=== PATIENT | female | born 1980 | race African-American/Black ===

== ENCOUNTER 2021-03-19 11:33 | Outpatient (REF) | payer OTHER, SELFPAY ==
[2021-03-19 13:34] LABS: Appearance Urine HAZY; Color Urine YELLOW; Glucose Urine UA NEG (NEG); Leukocyte Esterase Urine NEG (NEG); Nitrite Urine NEG (NEG); Urine Blood 1+ (NEG); Urine Ketones NEG (NEG); Urine Protein NEG (NEG-TRACE)
[2021-03-19 13:47] LABS: Mucus Urine 1+ /LPF; Squamous Epithelial Cell Urine 1+ /LPF; WBC Urine 0 /HPF (0-4)
== END 2021-03-19 11:34 | disposition home or self-care (01) ==
LOC: HO.LAB 11:33
PROVIDERS: PCP Internal Medicine; Visit Provider Internal Medicine
DX: F41.9 Anxiety disorder, unspecified (principal); E78.00 Pure hypercholesterolemia, unspecified
CPT/HCPCS: 36415; 80048; 80061; 80076; 81001; 81003; 84443; 85027

== ENCOUNTER 2021-04-01 09:41 | Outpatient (REF) | payer OTHER, SELFPAY ==
[2021-04-01 11:40] LABS: Appearance Urine CLEAR; Color Urine YELLOW; Glucose Urine UA NEG (NEG); Leukocyte Esterase Urine NEG (NEG); Nitrite Urine NEG (NEG); Urine Blood TRACE (NEG); Urine Ketones NEG (NEG); Urine Protein NEG (NEG-TRACE)
[2021-04-01 11:41] LABS: Hematocrit 38.2 % (37.0-47.0); Mean Corpuscular HGB Conc 31.4 g/dl (31.0-35.0); Mean Corpuscular Hemoglobin 30.6 pg (27.0-33.0); Mean Corpuscular Volume 97.4 fL (80.0-98.0); Mean Platelet Volume 12.4 fL (9.4-12.3); Platelet Count 198 X10*3/uL (160-400); Red Blood Count 3.92 X10*6/uL (4.20-5.50); Red Cell Distribution Width 13.1 % (11.0-16.0); White Blood Count 5.5 X10*3/uL (4.8-10.8)
[2021-04-01 11:50] LABS: Alanine Aminotransferase 23 U/L (0-31); Albumin Level 4.2 g/dL (3.5-5.0); Alkaline Phosphatase 47 U/L (39-117); Anion Gap 10 (12-20); Aspartate Amino Transferase 18 U/L (5-31); Bilirubin Direct 0.2 mg/dL (0.0-0.5); Bilirubin Total 0.6 mg/dL (0.0-1.0); Blood Urea Nitrogen 12 mg/dL (9-16); Calcium 9.8 mg/dL (8.4-10.2); Carbon Dioxide 26 mmol/L (22-29); Chloride 109 mmol/L (96-108); Cholesterol 173 mg/dL; Estimated Glomerular Filt Rate > 60; Glucose Random 94 mg/dL (60-115); HDL Cholesterol 40 mg/dL; LDL Cholesterol Calculated 118 mg/dl; Potassium 4.5 mmol/L (3.3-5.1); Sodium 140 mmol/L (135-145); Total Protein 6.8 g/dL (6.5-8.0); Triglycerides 75 mg/dL
[2021-04-01 12:00] LABS: Squamous Epithelial Cell Urine 1+ /LPF
[2021-04-01 12:01] LABS: WBC Urine 0-2 /HPF (0-4)
[2021-04-01 12:02] LABS: Mucus Urine TRACE /LPF
== END 2021-04-01 09:42 | disposition home or self-care (01) ==
LOC: HO.HMGCLDS 09:41
PROVIDERS: PCP Internal Medicine; Visit Provider Internal Medicine
DX: E78.00 Pure hypercholesterolemia, unspecified (principal); F41.9 Anxiety disorder, unspecified
CPT/HCPCS: 36415; 80048; 80061; 80076; 81001; 84443; 85027

== ENCOUNTER 2021-07-25 16:00 | Outpatient (RCR) | payer OTHER, SELFPAY ==
--- NOTE | 2021-04-29 17:57 | MHC.PT.EP ---
[facility] [place] Office [place] Office [place] Office [address] Bonny Quiñonez [address] [phone] F: [phone] F: [phone] F: [phone] F: [phone] Physical Therapy Plan of Care Date of Evaluation: Date of Surgery: Diagnosis: This is 40 yo female presenting to skilled PT with a script for LBP. Assessment: This is 40 yo female presenting to skilled PT with a script for LBP. Patient reporting R hip pain that has been ongoing for about 2 years after a slip (did not fall). Her pain has gotten worse since. She reports that the R hip went into the trendelberg. She feels like she has lost ROM and strength. Pain increases with laying on the R hip, sitting, turning to the L, ascending and descending stairs. Pain is located at the R lateral hip, can wrap into the lateral aspect of the glut and ITB. Pain is described as sharp but is constant and dull with a lot of movement. Assessment reveals pain that ranges up to an 8/10. She demos decreased hip and lumbar ROM, decreased hip strength, impaired gait pattern as described above, impaired joint mobility throughout lumbar and hip joint, S/S consistent with SIJ involvement with sacral and ilium rotation as well as gross functional decline with standing, sitting, walking and ADLs. She is a good candidate for skilled PT 2x/wk for 5wks. Frequency and Duration: The patient will be seen 2x/wk for 5wks Short Term Goals: Demo proper squat and hip hinge technique Demo good pelvic symmetry Demo proper core stab in all planes Residential Goals: Tolerate sleeping on the R side without pain, sleep through the nice Tolerate dancing without pain during or pain following the day after Tolerate walking on treadmill at 3.0-3.5 mph for 15 mins without pain I in HEP and understand how to progress. Treatment Plan: Modalities to reduce pain, spasms and effusion. Manual therapy to restore motion and function. Therapeutic exercise to improve strength and flexibility. Neuromuscular re-education for posture and balance. Therapeutic activities to return to functional activities of daily living. Electronically signed by: Daisy Dubuc, PT Please sign and return to therapist. Thank you for your referral.
--- NOTE | 2021-07-26 07:46 | MHC.PT.DC ---
[facility] [place] Office [place] Office [place] Office [address] Bonny Quiñonez [address] [phone] F: [phone] F: [phone] F: [phone] F: [phone] Physical Therapy Discharge Report Diagnosis: This is 40 yo female presenting to skilled PT with a script for LBP. Date of Surgery: Date of Evaluation: 04/29/21 Date of Discharge: 07/25/21 Treatments to Date: 15 Cancellations to Date: 1 No Shows to Date: 1 Discharge Status: Achieved Goals Improved Function Independent with HEP Discharge Summary: Patient ad 15 visits with PT and was pain free on her last few appointments. Pt I with her HEP and tolerates full ther-ex program without manual intervention. Pt has improved function, balance, reduced pain and increased flexibility. DC to HEP at this time. Electronically signed by: Daisy Suresh PT Please sign and return to therapist. Thank you for your referral.
== END 2021-07-26 07:46 | disposition home or self-care (01) ==
LOC: HO.PTCHIC 16:00
PROVIDERS: PCP Internal Medicine; Visit Provider Internal Medicine
DX: S76.011D Strain of muscle, fascia and tendon of right hip, subsequent encounter (principal)
CPT/HCPCS: 97014; 97110; 97112; 97140; 97162; 97530

== ENCOUNTER 2022-05-30 08:54 | Outpatient (REF) | payer OTHER, SELFPAY ==
[2022-05-30 11:48] LABS: Hematocrit 38.1 % (37.0-47.0); Mean Corpuscular HGB Conc 31.5 g/dl (31.0-35.0); Mean Corpuscular Hemoglobin 30.8 pg (27.0-33.0); Mean Corpuscular Volume 97.7 fL (80.0-98.0); Mean Platelet Volume 11.9 fL (9.4-12.3); Platelet Count 223 X10*3/uL (160-400); Red Cell Distribution Width 13.1 % (11.0-16.0)
[2022-05-30 12:13] LABS: Alanine Aminotransferase 13 U/L (0-31); Albumin Level 4.2 g/dL (3.5-5.0); Alkaline Phosphatase 50 U/L (39-117); Anion Gap 8 (12-20); Aspartate Amino Transferase 16 U/L (5-31); Bilirubin Direct < 0.2 mg/dL (0.0-0.5); Bilirubin Total 0.6 mg/dL (0.0-1.0); Blood Urea Nitrogen 14 mg/dL (9-16); Calcium 9.9 mg/dL (8.4-10.2); Carbon Dioxide 28 mmol/L (22-29); Chloride 108 mmol/L (96-108); Cholesterol 197 mg/dL; Estimated Glomerular Filt Rate > 60; Glucose Random 96 mg/dL (60-115); HDL Cholesterol 55 mg/dL; LDL Cholesterol Calculated 129 mg/dl; Potassium 4.4 mmol/L (3.3-5.1); Sodium 140 mmol/L (135-145); Total Protein 6.7 g/dL (6.5-8.0); Triglycerides 66 mg/dL
[2022-05-30 12:31] LABS: Thyroid Stimulating Hormone 0.88 uIU/mL (0.32-4.0)
== END 2022-05-30 08:55 | disposition home or self-care (01) ==
LOC: HO.HMGCLDS 08:54
PROVIDERS: PCP Internal Medicine; Visit Provider Internal Medicine
DX: E78.00 Pure hypercholesterolemia, unspecified (principal); F41.9 Anxiety disorder, unspecified
CPT/HCPCS: 36415; 80048; 80061; 80076; 84443; 85027

== ENCOUNTER 2022-11-10 12:35 | Outpatient (REF) | payer OTHER, SELFPAY ==
--- NOTE | ~2022-11-10 | MM_ITS ---
EXAMINATION: MM SCREENING DIGITAL BREAST TOMOSYNTHESIS, BILATERAL CLINICAL INFORMATION: Screening. Asymptomatic. The lifetime risk of breast cancer based on the Tyrer-Cuzick Model is 8.6%. COMPARISON: Mammography: Baseline examination. No priors. TECHNIQUE: Digital breast tomosynthesis is performed in both the craniocaudal and mediolateral oblique views along with computer-aided detection (CAD). Synthesized 2D images are generated from the tomosynthesis. FINDINGS: There are scattered areas of fibroglandular density (ACR BI-RADS breast composition Category b). There is an oval isodense mass in the upper outer quadrant of the left breast, middle one third, measuring approximately 1.3 x 1.6 x 1.5 cm, with macrolobulated borders. This should be evaluated with sonography. There is a 1 view asymmetry in the 11:00 axis right breast, mid to anterior one third, with no definite correlate on the MLO projection. Diagnostic views recommended. There is otherwise no additional suspicious mass, suspicious grouped calcifications, or areas of architectural distortion in either breast. MM/MM tomosynthesis screening BI IMPRESSION: Mass in the upper outer quadrant of the left breast, middle one third, requires ultrasound. The patient will be recalled. 1 view asymmetry in the 11:00 axis of the right breast, mid to anterior one third will be evaluated with diagnostic views to include CC 3-D spot compression view, as well as a full-field 3-D right mediolateral view. Scheduled ultrasound should be included at the discretion of the interpreting radiologist. ASSESSMENT: BI-RADS BI-RADS 0 - Incomplete: Needs additional Imaging. RECOMMENDATION: 1. Additional views of the right breast, and targeted ultrasound of the left breast. 2. Targeted ultrasound right breast if warranted after review of the additional views. 3. Radiology department staff will contact the patient for additional imaging. Additional Imaging required This examination should not preclude the clinical evaluation of a suspicious palpable abnormality. This patient's information was entered into a reminder system with a target due date for their next mammogram.
== END 2022-11-10 12:36 | disposition home or self-care (01) ==
LOC: HO.MAMMO 12:35
PROVIDERS: PCP Internal Medicine; Visit Provider Internal Medicine
DX: Z12.31 Encounter for screening mammogram for malignant neoplasm of breast (principal)
CPT/HCPCS: 77063; 77067

== ENCOUNTER → 2022-11-10 12:45 | Outpatient (BNV) | payer OTHER, SELFPAY | PROVIDERS: PCP Internal Medicine; Visit Provider Radiology Diagnostic Radiology | DX: Z12.31 Encounter for screening mammogram for malignant neoplasm of breast (principal) | CPT/HCPCS: 77063; 77067 ==

== ENCOUNTER 2022-12-22 15:14 | Outpatient (REF) | payer OTHER, SELFPAY ==
--- NOTE | ~2022-12-22 | MM_ITS ---
EXAMINATION: MM DIAGNOSTIC DIGITAL BREAST TOMOSYNTHESIS, RIGHT US BREAST LIMITED, LEFT MAMMOGRAPHY: CLINICAL INFORMATION: Evaluate oval isodense circumscribed mass in the left breast upper outer quadrant measuring 1.6 cm. Evaluate right breast one view asymmetry in the 11:00 axis seen only on CC projection with no definite correlate on MLO projection. COMPARISON: Mammography: 11/10/2022 Baseline examination. TECHNIQUE: Digital RIGHT breast tomosynthesis is performed involving right full-field 3-D digital ML view, right spot compression 3-D CC and MLO views, as well as a right ML 3-D spot compression view, along with computer-aided detection (CAD). Synthesized 2D images are generated from the tomosynthesis. FINDINGS: There are scattered areas of fibroglandular density (ACR BI-RADS breast composition Category b). The 1 view asymmetry in the RIGHT breast dissipates on spot compression views and has no correlate on the full-field 3-D right ML view, findings consistent with superimposition artifact of overlapping fibroglandular tissues. No persistent suspicious findings are present within the RIGHT breast. No masses or suspicious calcifications. ULTRASOUND: CLINICAL INFORMATION: Evaluate LEFT breast oval circumscribed 1.6 cm mass upper outer quadrant seen on baseline screening mammography. COMPARISON: None TECHNIQUE: Targeted sonographic evaluation was performed of the LEFT breast upper outer quadrant using a high frequency linear transducer. Selected archived documentation. FINDINGS: LEFT BREAST: In the LEFT breast at the 2:00 axis, 12 cm from the nipple, there is a hypoechoic oval circumscribed mass measuring 1.6 x 0.8 x 1.4 cm, with good through transmission, no internal color Doppler signal, and no surrounding parenchymal changes. This is most likely a benign fibroadenoma, although given size, ultrasound-guided biopsy recommended for confirmation. No additional suspicious abnormalities evident in the upper outer LEFT breast. MM/MM tomosynthesis diagnostic RT IMPRESSION: 1. LEFT breast 2:00 axis oval circumscribed mass, measuring up to 1.6 cm, most likely a fibroadenoma or variant, although given size, ultrasound-guided biopsy recommended for confirmation. 2. No persistent suspicious abnormality in the RIGHT breast. 3. Findings and recommendations were discussed with the patient in detail. OVERALL ASSESSMENT: Mammography: BI-RADS 4 - Suspicious finding Ultrasound: BI-RADS 4 - Suspicious finding RECOMMENDATION: Biopsy recommended
== END 2022-12-22 15:15 | disposition home or self-care (01) ==
LOC: HO.MAMMO 15:14
PROVIDERS: PCP Internal Medicine; Visit Provider Internal Medicine
DX: N64.89 Other specified disorders of breast (principal); N63.21 Unspecified lump in the left breast, upper outer quadrant
CPT/HCPCS: 76642; 77061; 77065

== ENCOUNTER → 2022-12-22 15:30 | Outpatient (BNV) | payer OTHER, SELFPAY | PROVIDERS: PCP Internal Medicine; Visit Provider Radiology Diagnostic Radiology | DX: R92.8 Other abnormal and inconclusive findings on diagnostic imaging of breast (principal) | CPT/HCPCS: 76642; 77061; 77065 ==

== ENCOUNTER 2022-12-29 08:13 | Outpatient (AMB) | payer OTHER, SELFPAY ==
[2022-12-29 08:23] VITALS: BP 140/84; PULSE 55; BMI 40.2
--- NOTE | 2022-12-29 08:23 | A.OFFVIS_ITS ---
Intake Vital Signs 12/29/22 08:23 Height 5 ft Weight 206 lb BMI 40.2 BP 140/84 H Blood Pressure Location Rt brachial Position Sitting Pulse 55 Intake Visit Reasons: Left breast u/s bx for mass consult Intake Note: Patient here for Lt breast US mass consult. Reports started to feel pain on and off for 2m. Feels like sharp pain that comes and goes. Denies discharge from nipple. Noticed moderate itch around nipple but denies rash only dry skin. No family hx of breast ca. 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 Accompanied by: Self / Same As Patient Allergies nut - unspecified [nut] Allergy (Mild, Verified 12/29/22 08:26) UNKNOWN Chocolate Allergy (Mild, Uncoded 12/29/22 08:26) UNKNOWN Medication List - Last Reviewed 12/29/22 by PK Munroe albuterol sulfate 90 mcg/actuation (Ventolin HFA) 1 inh inhalation QID PRN citalopram 20 mg PO DAILY clonazepam (Klonopin) 0.5 mg PO BEDTIME PRN fluticasone propion-salmeterol 250-50 mcg/dose (Advair Diskus) 1 inh inhalation BID HPI HPI Comments History of Present Illness Details Patient presents for for evaluation status post her 1st screening mammogram and ultrasonography demonstrating a left breast mass. She has no breast symptoms or complaints. She does occasional self-breast exams. Family history negative breast cancer. Menstrual history Chart and radiographic studies were reviewed and patient evaluated [facility] Medical History Osteoarthritis of right knee History of History of gestational diabetes Stress incontinence GERD (gastroesophageal reflux disease) Migraine Obesity Obsessive compulsive disorder Hypercholesterolemia Asthma Anemia Surgical History History of History of dilatation and curettage S/P arthroscopic surgery of right knee Family History Father Hyperlipidemia Mother History of hysterectomy Son Apraxia Other Mental health disorder Social History (Updated 12/29/22 @ 08:27 by PK Munroe) Housing: House Alcohol intake: current Alcohol type: beer Patient Tobacco Use Status: Former Tobacco user e-Cigarette/Vaping Use: Never Used Second Hand Smoke Exposure: No service: Yes Current occupational status: employed Cognitive needs: No Hearing needs: No Vision needs: No Physical Exam Vital Signs: Last Vital Signs Pulse 55 12/29/22 08:23 BP 140/84 H 12/29/22 08:23 BMI result Body Mass Index 40.2 Chest Other: Breast exam demonstrates bilaterally no evidence of any mass, discharge, skin changes, bilateral periclavicular axillary exam negative. Assessment & Plan Assessment & Plan (1) Left breast mass: Code(s): N63.20 - Unspecified lump in the left breast, unspecified quadrant Plan Patient is scheduled for ultrasound-guided biopsy left breast lesion. Patient will see me for follow-up next week or p.r.n. All questions were answered. Orders: Orders US breast ndl core biopsy LT Today N63.20 - Unspecified lump in the left breast, unspecified quadrant Coding Level of Care Code New Pt Level 4 (15652) Diagnoses Left breast mass N63.20
== END 2022-12-29 08:41 | disposition home or self-care (01) ==
PROVIDERS: PCP Internal Medicine; Visit Provider Surgery
DX: N63.20 Unspecified lump in the left breast, unspecified quadrant (principal)
CPT/HCPCS: 99204

== ENCOUNTER 2022-12-29 08:52 | Outpatient (REF) | payer OTHER, SELFPAY ==
--- NOTE | ~2022-12-29 | MM_ITS ---
PROCEDURE: US GUIDED BREAST BIOPSY, LEFT CLINICAL INFORMATION: Left breast circumscribed mass at 2:00 axis, 12 cm from the nipple, seen on baseline screening mammography and subsequent ultrasound, measuring 1.6 x 0.8 x 1.4 cm. COMPARISON: 12/22/2022, 11/10/2022. PROCEDURAL DETAILS: The details of the procedure, as well as the risks, benefits, and alternatives to the procedure were explained to the patient in detail and all of her questions were answered, after which written informed consent was obtained. Site and side were confirmed. Prior to the procedure, sonography revealed a hypoechoic circumscribed oval mass measuring 1.6 x 0.8 x 1.4 cm, with good through transmission. A time-out was performed, the lesion intended for biopsy was targeted, and the skin of the overlying left breast was then prepped and draped in the usual sterile fashion. Using sonographic guidance, sterile technique, and 1% lidocaine without epinephrine for local anesthesia, multiple automated core biopsies were obtained through the targeted area with a 14G spring loaded Working Equityera core biopsy device. 4 cores were obtained. There was real-time confirmation of appropriate needle passage. Sampling was documented. At the completion of tissue sampling, a single butterfly-shaped metallic clip was deposited at the biopsy site. There was no evidence of immediate complication. SPECIMEN: An appropriate sample was obtained. DIGITAL POST-PROCEDURE MAMMOGRAPHY: Breast density: The tissue contains scattered areas of fibroglandular density. BI-RADS version 5, category B. There are no new mammographic findings demonstrated. The postprocedure 2-view direct digital mammogram reveals satisfactory and accurate positioning of the biopsy clip. The patient tolerated the procedure well and, after assuring adequate hemostasis, was discharged in good condition after reviewing postbiopsy breast care instructions. Final pathology results are pending. MM/MM diagnostic mammo unilat LT IMPRESSION: 1. No immediate complication from ultrasound-guided percutaneous biopsy left breast. 2. Ultrasound was used to localize and guide marker clip placement. 3. The 2-view direct digital postprocedure mammogram reveals satisfactory and accurate positioning of the biopsy clip. 4. Final pathology results are pending. A separate report with final recommendations will be issued once these results are made available.
== END 2022-12-29 08:53 | disposition home or self-care (01) ==
LOC: HO.MAMMO 08:52
PROVIDERS: PCP Internal Medicine; Visit Provider Surgery
DX: N63.21 Unspecified lump in the left breast, upper outer quadrant (principal)
CPT/HCPCS: 19083; 77062; 77065; 88305; C1894

== ENCOUNTER → 2022-12-29 10:00 | Outpatient (BNV) | payer OTHER, SELFPAY | PROVIDERS: PCP Internal Medicine; Visit Provider Radiology Diagnostic Radiology | DX: D24.2 Benign neoplasm of left breast (principal) | CPT/HCPCS: 19083; 77065 ==

== ENCOUNTER 2023-01-05 15:19 | Outpatient (AMB) | payer OTHER, SELFPAY ==
[2023-01-05 15:31] VITALS: BP 164/89; PULSE 70; BMI 40.0
--- NOTE | 2023-01-05 15:31 | A.OFFVIS_ITS ---
Intake Vital Signs 01/05/23 15:31 Height 5 ft Weight 205 lb BMI 40.0 BP 164/89 H Blood Pressure Location Rt brachial Position Sitting Pulse 70 Intake Visit Reasons: Follow Up Left breast u/s bx for mass consult Intake Note: Patient here for f/u Lt breast bx. Reports incisions healing well. Denies pain, tenderness, oozing, itch. 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 She has no post biopsy issues or complaints. Pathology is benign. [facility] Medical History Osteoarthritis of right knee History of History of gestational diabetes Stress incontinence GERD (gastroesophageal reflux disease) Migraine Obesity Obsessive compulsive disorder Hypercholesterolemia Asthma Anemia Surgical History History of History of dilatation and curettage S/P arthroscopic surgery of right knee Family History Father Hyperlipidemia Mother History of hysterectomy Son Apraxia Other Mental health disorder Social History Housing: House Alcohol intake: current Alcohol type: beer Patient Tobacco Use Status: Former Tobacco user e-Cigarette/Vaping Use: Never Used Second Hand Smoke Exposure: No service: Yes Current occupational status: employed Cognitive needs: No Hearing needs: No Vision needs: No Physical Exam Vital Signs: Last Vital Signs Pulse 70 01/05/23 15:31 BP 164/89 H 01/05/23 15:31 BMI result Body Mass Index 40.0 Neck Other: Biopsy site healing uneventfully. Assessment & Plan Assessment & Plan (1) Left breast mass: Code(s): N63.20 - Unspecified lump in the left breast, unspecified quadrant Plan Current plan is to obtain a bilateral mammogram 6 months time for post biopsy baseline and patient will see me after the study. She is encouraged to self exams every month or so. Patient will see me as directed or p.r.n.. Coding Level of Care Code Est Pt Level 4 (14152) Diagnoses Left breast mass N63.20
== END 2023-01-05 15:43 | disposition home or self-care (01) ==
PROVIDERS: PCP Internal Medicine; Visit Provider Surgery
DX: N63.20 Unspecified lump in the left breast, unspecified quadrant (principal)
CPT/HCPCS: 99214

== ENCOUNTER → 2023-01-05 15:19 | Outpatient (BNVA) | payer OTHER, SELFPAY | PROVIDERS: PCP Internal Medicine; Visit Provider Surgery | DX: N63.20 Unspecified lump in the left breast, unspecified quadrant (principal) | CPT/HCPCS: 99212 ==

== ENCOUNTER 2023-06-24 15:17 | Outpatient (REF) | payer OTHER, SELFPAY ==
--- NOTE | ~2023-06-24 | US_ITS ---
EXAMINATION: US DIAGNOSTIC ULTRASOUND BREAST, LEFT CLINICAL INFORMATION: Follow-up for left breast mass 2:00 axis, 10 cm from the nipple, with benign biopsy result. Patient underwent biopsy the ultrasound 12/29/2022. Pathology yielded, PASH, nodular stromal hyalinization, and apocrine metaplasia; negative for malignancy or atypia. COMPARISON: 12/22/2022. 12/29/2022 ultrasound biopsy. TECHNIQUE: Ultrasound of the left 2:00 axis breast is performed with real-time john scale imaging and color Doppler. FINDINGS: There is a lobular mass in the left breast 2:00 axis, 10 cm from the nipple, currently measuring 1.8 x 0.8 x 1.4 cm, within the internal hydromark biopsy clip. Previously this measured 1.6 x 0.8 x 1.4 cm, with a slight increase in size attributable to the presence of the hydromark biopsy clip. It is essentially stable. There is good through transmission, no internal color Doppler vascularity. This is benign. No additional abnormalities noted. Results are discussed with the patient at time of visit. US/US breast LT limited mamm only IMPRESSION: Benign mass left breast 2:00 axis, 10 cm from the nipple which has undergone biopsy. Recommend the patient return to routine screening mammography in November 2023. ASSESSMENT: BI-RADS 2: Benign RECOMMENDATION: Routine annual mammography screening. This patient's information was entered into a reminder system with a target due date for their next mammogram.
== END 2023-06-24 15:18 | disposition home or self-care (01) ==
LOC: HO.MAMMO 15:17
PROVIDERS: PCP Internal Medicine; Visit Provider Internal Medicine
DX: N63.21 Unspecified lump in the left breast, upper outer quadrant (principal)
CPT/HCPCS: 76642

== ENCOUNTER → 2023-06-24 15:30 | Outpatient (BNV) | payer OTHER, SELFPAY | PROVIDERS: PCP Internal Medicine; Visit Provider Radiology Diagnostic Radiology | DX: N63.21 Unspecified lump in the left breast, upper outer quadrant (principal) | CPT/HCPCS: 76642 ==

== ENCOUNTER 2023-07-28 08:54 | Outpatient (AMB) | payer OTHER, SELFPAY ==
[2023-07-28 09:04] VITALS: BP 132/84; PULSE 70; BMI 40.2
--- NOTE | 2023-07-28 09:04 | A.OFFVIS_ITS ---
Vital Signs 07/28/23 09:04 Height 5 ft Weight 206 lb BMI 40.2 BP 132/84 Blood Pressure Location Rt brachial Position Sitting Pulse 70 Intake Visit Reasons: 6 mth follow up Left breast u/s bx for mass Intake Note: Patient here for 6m f/u lt bs us bx. Patient c/o: denies changes. Please refer to Lt br US on 06-24-2023. 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 Patient is status post breast biopsy which was a benign lesion approximately 6 months ago. Patient has no breast issues or complaints she does do periodic self breast exams [facility] Medical History Osteoarthritis of right knee History of History of gestational diabetes Stress incontinence GERD (gastroesophageal reflux disease) Migraine Obesity Obsessive compulsive disorder Hypercholesterolemia Asthma Anemia Surgical History History of History of dilatation and curettage S/P arthroscopic surgery of right knee Family History Father Hyperlipidemia Mother History of hysterectomy Son Apraxia Other Mental health disorder Social History Housing: House Alcohol intake: current Alcohol type: beer Patient Tobacco Use Status: Former Tobacco user e-Cigarette/Vaping Use: Never Used Second Hand Smoke Exposure: No service: Yes Current occupational status: employed Cognitive needs: No Hearing needs: No Vision needs: No Physical Exam Vital Signs: Last Vital Signs Pulse 70 07/28/23 09:04 BP 132/84 07/28/23 09:04 BMI result Body Mass Index 40.2 Chest Other: Bilateral breast exam demonstrates no obvious mass, discharge, adenopathy, or skin changes bilaterally. Negative periclavicular or axillary or cervical adenopathy bilaterally. Assessment & Plan Assessment & Plan (1) Encounter for follow-up surveillance of breast cancer: Code(s): Z08 - Encounter for follow-up examination after completed treatment for malignant neoplasm; Z85.3 - Personal history of malignant neoplasm of breast Category: Surgical Plan Current plan is for the patient to be under annual mammography which is in the this fall we will see her after that study or p.r.n... All questions answered. She is encouraged to do self-breast exams.
== END 2023-07-28 09:18 | disposition home or self-care (01) ==
PROVIDERS: PCP Internal Medicine; Visit Provider Surgery
DX: Z08 Encounter for follow-up examination after completed treatment for malignant neoplasm (principal); Z85.3 Personal history of malignant neoplasm of breast
CPT/HCPCS: 99214

== ENCOUNTER → 2023-07-28 08:54 | Outpatient (BNVA) | payer OTHER, SELFPAY | PROVIDERS: PCP Internal Medicine; Visit Provider Surgery | DX: Z08 Encounter for follow-up examination after completed treatment for malignant neoplasm (principal); Z85.3 Personal history of malignant neoplasm of breast | CPT/HCPCS: 99212 ==

== ENCOUNTER 2023-08-05 08:07 | Outpatient (AMB) | payer OTHER, SELFPAY ==
[2023-08-05 08:29] VITALS: BP 132/82; PULSE 72; TEMP 36.7; O2SAT 98; BMI 40.2
--- NOTE | 2023-08-05 08:29 | AM.OFFWIN_ITS ---
Intake Vital Signs 3 08/05/23 08:29 Height 5 ft Weight 206 lb BMI 40.2 BP 132/82 Blood Pressure Location Rt brachial Position Sitting Pulse 72 Pulse Source Pulse Oximeter Temp 98.0 F Temp Source Oral Pulse Oximetry (%) 98 Oxygen Delivery Method Room Air Intake Visit Reasons: EP rash back armpit/painful Intake Note: pt is here for rash on back and armpit and patient states its painful Patient Tobacco Use Status: Former Tobacco user Allergies nut - unspecified [nut] Allergy (Mild, Verified 08/05/23 08:29) UNKNOWN Chocolate Allergy (Mild, Uncoded 07/28/23 09:06) UNKNOWN Medication List - Last Reconciled 08/05/23 by Yessica Quevedo MD albuterol sulfate 90 mcg/actuation (Ventolin HFA) 1 inh inhalation QID PRN citalopram 20 mg PO DAILY clonazepam (Klonopin) 0.5 mg PO BEDTIME PRN fluticasone propion-salmeterol 250-50 mcg/dose (Advair Diskus) 1 inh inhalation BID Do you need a note to return to daycare/school/sports/work: Yes HPI EP rash back armpit/painful 2 HPI0 Details Patient is 42-year-old female came in today to be evaluated for she developed 4 days ago rash is located on left anterior shoulder and back, feels like burning sensation There is no fever no chills no nausea vomiting diarrhea Patient came back from vacation from [place] 10 days ago On examination patient has developed herpes zoster rash following dermatome T2- T3 I am treating her with prednisone 20 mg once a day for 5 days And Famvir 500 mg b.i.d. for 7 days [facility] Medical History Osteoarthritis of right knee History of History of gestational diabetes Stress incontinence GERD (gastroesophageal reflux disease) Migraine Obesity Obsessive compulsive disorder Hypercholesterolemia Asthma Anemia Surgical History History of History of dilatation and curettage S/P arthroscopic surgery of right knee Family History Father Hyperlipidemia Mother History of hysterectomy Son Apraxia Other Mental health disorder Social History Housing: House Alcohol intake: current Alcohol type: beer Patient Tobacco Use Status: Former Tobacco user e-Cigarette/Vaping Use: Never Used Second Hand Smoke Exposure: No service: Yes Current occupational status: employed Cognitive needs: No Hearing needs: No Vision needs: No Review of Systems Const All systems reviewed & are unremarkable except as noted in HPI and below Physical Exam Vital Signs: Last Vital Signs Temp 98.0 F 08/05/23 08:29 Pulse 72 08/05/23 08:29 BP 132/82 08/05/23 08:29 Pulse Ox 98 08/05/23 08:29 Oxygen Delivery Method Room Air 08/05/23 08:29 BMI result Body Mass Index 40.2 Const General: no acute distress Orientation/consciousness: patient oriented x3 Eyes General: appearance normal, both eyes and all related structures Resp Effort & Inspection: normal respiratory effort and able to speak in complete sentences Auscultation: clear to auscultation bilaterally Skin Full body images: 2 1. Maculopapular rash 2. Maculopapular rash Neuro General: patient oriented x3 Psych Mental Status: mental status grossly normal Assessment & Plan Assessment & Plan (1) Shingles rash: Code(s): B02.9 - Zoster without complications Qualifiers: Herpes zoster complications: without complications Qualified Code(s): B 02.9 - Zoster without complications Plan Patient is 42-year-old female came in today to be evaluated for she developed 4 days ago rash is located on left anterior shoulder and back, feels like burning sensation There is no fever no chills no nausea vomiting diarrhea Patient came back from vacation from [place] 10 days ago On examination patient has developed herpes zoster rash following dermatome T2- T3 I am treating her with prednisone 20 mg once a day for 5 days And Famvir 500 mg b.i.d. for 7 days Coding Level of Care Code Est Pt Level 3 (27194) Diagnoses Herpes zoster without complication B02.9 Herpes zoster complications: without complications
== END 2023-08-05 09:01 | disposition home or self-care (01) ==
PROVIDERS: PCP Internal Medicine; Visit Provider Internal Medicine
DX: B02.9 Zoster without complications (principal)
CPT/HCPCS: 99213

== ENCOUNTER 2023-11-03 07:19 | Outpatient (REF) | payer OTHER, SELFPAY ==
[2023-11-03 08:02] LABS: Hematocrit 35.7 % (37.0-47.0); Hemoglobin 11.6 g/dl (12.0-16.0); Mean Corpuscular HGB Conc 32.5 g/dl (31.0-35.0); Mean Corpuscular Volume 95.5 fL (80.0-98.0); Mean Platelet Volume 11.4 fL (9.4-12.3); Platelet Count 208 X10*3/uL (160-400); Red Blood Count 3.74 X10*6/uL (4.20-5.50); Red Cell Distribution Width 13.2 % (11.0-16.0); White Blood Count 6.1 X10*3/uL (4.8-10.8)
[2023-11-03 08:38] LABS: Alanine Aminotransferase 12 U/L (0-31); Albumin Level 4.2 g/dL (3.5-5.0); Alkaline Phosphatase 49 U/L (39-117); Anion Gap 10 (12-20); Aspartate Amino Transferase 14 U/L (5-31); Bilirubin Direct 0.1 mg/dL (0.0-0.5); Bilirubin Total 0.4 mg/dL (0.0-1.0); Blood Urea Nitrogen 13 mg/dL (9-16); Calcium 10.2 mg/dL (8.4-10.2); Carbon Dioxide 25 mmol/L (22-29); Chloride 108 mmol/L (96-108); Cholesterol 178 mg/dL (<200); Estimated Glomerular Filt Rate > 60; Glucose Random 105 mg/dL (60-115); HDL Cholesterol 52 mg/dL (>40); LDL Cholesterol Calculated 108 mg/dL (<100); Potassium 4.2 mmol/L (3.3-5.1); Sodium 139 mmol/L (135-145); Total Protein 7.1 g/dL (6.5-8.0); Triglycerides 94 mg/dL (<150)
[2023-11-03 08:47] LABS: Thyroid Stimulating Hormone 1.11 uIU/mL (0.32-4.0)
[2023-11-03 08:48] LABS: Appearance Urine Clear; Color Urine Yellow; Glucose Urine UA Negative (Negative); Leukocyte Esterase Urine Negative (Negative); Nitrite Urine Negative (Negative); UMIC TRIGGER UA YES; Urine Blood Trace (Negative); Urine Ketones Negative (Negative); Urine Protein Negative (Neg-Trace)
[2023-11-03 10:30] LABS: Bacteria Urine None Seen (None Seen); Hyaline Casts Urine 0-2 /LPF (0-2); WBC Urine 0-5 /HPF (0-5)
== END 2023-11-03 07:20 | disposition home or self-care (01) ==
LOC: HO.LAB 07:19
PROVIDERS: PCP Internal Medicine; Visit Provider Internal Medicine
DX: F41.1 Generalized anxiety disorder (principal); E66.01 Morbid (severe) obesity due to excess calories; Z68.41 Body mass index [BMI] 40.0-44.9, adult
CPT/HCPCS: 36415; 80048; 80061; 80076; 81001; 84443; 85027

== ENCOUNTER 2023-11-03 07:47 | Outpatient (AMB) | payer OTHER, SELFPAY ==
[2023-11-03 07:53] VITALS: BP 134/86; PULSE 70; O2SAT 98; BMI 41.6
--- NOTE | 2023-11-03 07:53 | A.OFFPC_ITS ---
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 Required: No Accompanied by: Self / Same As Patient Allergies nut - unspecified [nut] Allergy (Mild, Verified 11/03/23 08:11) UNKNOWN Chocolate Allergy (Mild, Uncoded 11/03/23 08:11) UNKNOWN Medication List - Last Reconciled 11/03/23 by Abhishek Gaming MD albuterol sulfate 90 mcg/actuation (Ventolin HFA) 1 inh inhalation QID PRN citalopram 20 mg PO DAILY clonazepam (Klonopin) 0.5 mg PO BEDTIME PRN fluticasone propion-salmeterol 250-50 mcg/dose (Advair Diskus) 1 inh inhalation BID Tobacco use date assessed: 11/03/23 Dental Screening Dental Screen Date: 11/03/23 Did you have a dental visit in the last 12 months?: No Did you have a dental problem in the last 6 months where you did not have access to dental care?: No Was dental information given to patient?: Patient has dentist HPI annual exam HPI Details 43-year-old female presents to the offic e requesting an annual physical. In addition, patient is requesting an social media content specialist referral. She has history of eczema and for the past few months is suffering from intermittent rashes on the face, arms etc. They respond to meds but return on withdrawl of the same. She is reluctant to stay on Claritin indefinitely. Wants to get allergy testing. No shortness of breath or wheezing. [facility] Medical History (Updated 11/03/23 @ 08:23 by Abhishek Gaming MD) Allergies Generalized anxiety disorder Osteoarthritis of right knee History of History of gestational diabetes Stress incontinence GERD (gastroesophageal reflux disease) Migraine Obesity Obsessive compulsive disorder Hypercholesterolemia Asthma Anemia Surgical History History of left breast biopsy History of History of dilatation and curettage S/P arthroscopic surgery of right knee Family History Father Hyperlipidemia Mother History of hysterectomy Son Apraxia Other Mental health disorder Social History Housing: House Alcohol intake: current Alcohol type: beer Patient Tobacco Use Status: Former Tobacco user e-Cigarette/Vaping Use: Never Used Second Hand Smoke Exposure: No service: Yes Current occupational status: employed Current occupational exposures/hazards: No Cognitive needs: No Hearing needs: No Vision needs: No Questionnaire PHQ-9 Over the last 2 weeks, how often have you been bothered by any of the following problems? 1. Little interest or pleasure in doing things: not at all 2. Feeling down, depressed, or hopeless: not at all 3. Trouble falling or staying asleep, or sleeping too much: several days 4. Feeling tired or having little energy: more than half the days 5. Poor appetite or overeating: more than half the days 6. Feeling bad about yourself - or that you are a failure or have let yourself or your family down: nearly every day 7. Trouble concentrating on things, such as reading the newspaper or watching television: not at all 8. Moving or speaking so slowly that other people could have noticed. Or the opposite - being so fidgety or restless that you have been moving around a lot more than usual: several days 9. Thoughts that you would be better off or of hurting yourself in some way: not at all Total score: 9 Depression Screening Interpretation: Positive Depression Screening Follow-up: Existing condition and In treatment Depression Screening Done: Yes Source: Developed by Drs. Dylon Walden, Deirdre Hendrix, Daron Lozada and colleagues, with an educational cookie from [employer]. Thrive Questionnaire Date Thrive assessed: 11/03/23 I am a: Patient What is your living situation today?: I have a steady place to live Within the past 12 months, did the food you bought not last and you didn't have the money to get more?: Never true Within the past 12 months, did you worry whether your food would run out before you got money to buy more?: Never true Do you have trouble paying for medicines?: No Do you have trouble getting transportation to medical appointments?: No Do you have trouble paying your heating and electricity bill?: No Do you have trouble taking care of your child, family member or friend?: No Do you have trouble with day-to-day activities such as bathing, preparing meals, shopping, managing finances, etc.?: No Are you currently unemployed and looking for a job?: No Are you interested in more education?: No Please select the resources that you would like help with: None Currently or been in a relationship where the following occur: No concerns reported THRIVE Score: 0 AUDIT C Alcohol Use Questionnaire (AUDIT-C) 1. How often do you have a drink containing alcohol?: Monthly or less 2. How many drinks containing alcohol do you have on a typical day when you are drinking?: 1 or 2 3. How often do you have six or more drinks on one occasion?: Never Total Score: 1 BUDDY-7 AMB Questionnaire BUDDY-7 Date BUDDY - 7 assessed: 11/03/23 Feeling nervous, anxious, or on edge: 2 = More than half the days Not being able to stop or control worryin = Not at all Worrying too much about different things: 3 = Nearly every day Trouble relaxin = More than half the days Being so restless that it is hard to sit still: 1 = Several days Becoming easily annoyed or irritable: 2 = More than half the days Feeling afraid as if something awful might happen: 1 = Several days Total BUDDY-7 score (0-4 normal; 5-9 mild; 10-14 moderate; 15-21 severe): 11 Source: Developed by Drs. Dylon Walden, Deirdre Hendrix, Daron Lozada and colleagues, with an educational cookie from [employer]. Physical exam (Primary Care) Vital Signs: Last Vital Signs Pulse 70 11/03/23 07:53 BP 134/86 11/03/23 07:53 Pulse Ox 98 11/03/23 07:53 Oxygen Delivery Method Room Air 11/03/23 07:53 Care Plan Goal for BP management: Blood pressure is in range. BMI result Body Mass Index 41.6 BMI Assessment/Plan discussion: High (1 lb per week weight loss suggested.) BMI High, discussed plan: lifestyle, weight reduction and dietary Tobacco/Smoking Status: Tobacco use Status Tobacco use date assessed 11/03/23 11/03/23 08:00 Patient Tobacco Use Status Former Tobacco user 11/03/23 08:00 e-Cigarette/Vaping Use Never Used 11/03/23 08:00 PHQ-9: PHQ-9 Score PHQ-9: Total score 9 11/03/23 08:00 Depression Screening Interpretation: Positive Depression Screening Follow-up: Existing condition and In treatment Thrive Assessment: Date of Thrive Assessment Date Thrive assessed 11/03/23 11/03/23 08:00 Currently or been in a relationship where the following occur: No concerns reported Const General: cooperative and healthy appearing Nutritional Appearance: well nourished Orientation/consciousness: patient oriented x3 Limitations: no limitations HENMT Head: Yes normal to inspection Eyes General: appearance normal, both eyes and all related structures Neck Neck: Yes normal visual inspection Chest Chest palpation & inspection: normal palpation of entire chest wall Resp Effort & Inspection: normal respiratory effort Skin Other: No visible eczematous rash. Neuro General: patient oriented x3 Assessment and Plan Assessment & Plan (1) Generalized anxiety disorder: Code(s): F41.1 - Generalized anxiety disorder Plan: Stress about her work has aggravated the anxiety. Advised to try taking her SSRI at night. (2) Morbid obesity with BMI of 40.0-44.9, adult: Code(s): E66.01 - Morbid (severe) obesity due to excess calories; Z68.41 - Body mass index [BMI] 40.0-44.9, adult Plan: Counselling to reduce weight done. (3) Annual physical exam: Code(s): Z00.00 - Encounter for general adult medical examination without abnormal findings Plan: EITAN revd. Patient has annual mammogram thru her surgeon. Medical Doctor Md/Medical Director Appt for routine PAP smear scheduled. (4) Hypercholesterolemia: Code(s): E78.00 - Pure hypercholesterolemia, unspecified (5) Allergies: Code(s): T78.40XA - Allergy, unspecified, initial encounter Plan: Senior Design Engineer appt given. Medications: Refilled clonazepam (Klonopin) administer 30 minutes before bedtime 0.5 mg PO BEDTIME PRN 10 tabs 0RF anxiety Coding Level of Care Code Est Pt Level 4 (46475) Est Pt Prev Care 40-64y(04596) Diagnoses Generalized anxiety disorder F41.1 Morbid obesity with BMI of 40.0-44.9, adult E66.01; Z68.41 Annual physical exam Z00.00 Hypercholesterolemia E78.00 Allergies T78.40XA
== END 2023-11-03 08:13 | disposition home or self-care (01) ==
PROVIDERS: PCP Internal Medicine; Visit Provider Internal Medicine
DX: Z00.00 Encounter for general adult medical examination without abnormal findings (principal); F41.1 Generalized anxiety disorder; E66.01 Morbid (severe) obesity due to excess calories; Z68.41 Body mass index [BMI] 40.0-44.9, adult; E78.00 Pure hypercholesterolemia, unspecified; T78.40XA Allergy, unspecified, initial encounter
CPT/HCPCS: 99396

== ENCOUNTER 2024-03-28 08:18 | Outpatient (AMB) | payer OTHER, SELFPAY ==
--- NOTE | 2024-03-28 09:23 | MHC.OFFWIV ---
Intake Vital Signs 03/28/24 09:24 Weight 206 lb BP 130/82 Blood Pressure Location Lt brachial Position Sitting Pulse 59 Pulse Source Pulse Oximeter Temp 98.2 F Temp Source Oral Pulse Oximetry (%) 98 Oxygen Delivery Method Room Air Intake Visit Reasons: EP difficulty breathing, inhaler not working Intake Note: Patient here for difficulty breathing and having to use her emergency inhaler too often during the day. Patient Tobacco Use Status: Former Tobacco user Allergies nut - unspecified [nut] Allergy (Mild, Verified 03/28/24 09:25) UNKNOWN Chocolate Allergy (Mild, Uncoded 03/28/24 09:25) UNKNOWN Do you need a note to return to daycare/school/sports/work: No HPI EP difficulty breathing, inhaler not working HPI Details This note is constructed using voice recognition software. While every effort has been made to ensure accuracy, internal combustion engine assembler errors may have been included. The patient is a 43 year old female who presents to the clinic today with ongoing cough and wheeze for the past month after upper respiratory infection. She notes that historically her asthma is exacerbated by URIs and allergies, she obtained a URI about a month ago, and just never stopped coughing. She is using her albuterol inhaler multiple times each day. She has run out of her inhaled steroid. She denies fever, chills, shortness of breath. She reports wheezing that is audible from across the room. [facility] Medical History (Updated 11/03/23 @ 08:23 by Abhishek Gaming MD) Allergies Generalized anxiety disorder Osteoarthritis of right knee History of History of gestational diabetes Stress incontinence GERD (gastroesophageal reflux disease) Migraine Obesity Obsessive compulsive disorder Hypercholesterolemia Asthma Anemia Surgical History History of left breast biopsy History of History of dilatation and curettage S/P arthroscopic surgery of right knee Family History Father Hyperlipidemia Mother History of hysterectomy Son Apraxia Other Mental health disorder Social History Housing: House Alcohol intake: current Alcohol type: beer Patient Tobacco Use Status: Former Tobacco user e-Cigarette/Vaping Use: Never Used Second Hand Smoke Exposure: No service: Yes Current occupational status: employed Current occupational exposures/hazards: No Cognitive needs: No Hearing needs: No Vision needs: No Review of Systems Const All systems reviewed & are unremarkable except as noted in HPI and below Physical Exam Vital Signs: Last Vital Signs Temp 98.2 F 03/28/24 09:24 Pulse 59 03/28/24 09:24 BP 130/82 03/28/24 09:24 Pulse Ox 98 03/28/24 09:24 Oxygen Delivery Method Room Air 03/28/24 09:24 Const General: cooperative, healthy appearing, comfortable, no acute distress and well developed Orientation/consciousness: patient oriented x3 Limitations: no limitations HEENT Head: Yes normal to inspection Ears: hearing grossly normal bilaterally General nose exam: Normal external nose present Face and sinus: Yes normal facial exam Eyes General: appearance normal, both eyes and all related structures Neck Neck: Yes normal visual inspection and Yes full ROM Resp Effort & Inspection: normal respiratory effort, able to speak in complete sentences and audible wheezes Cardio Rate: regular rate Rhythm: regular rhythm Heart sounds: normal S1 and S2 Skin General skin exam: no rashes or lesions noted Neuro General: patient oriented x3 Assessment & Plan Assessment & Plan (1) Asthma exacerbation: Code(s): J45.901 - Unspecified asthma with (acute) exacerbation Qualifiers: Asthma severity: moderate Asthma persistence: persistent Qualified Code(s): J45.41 - Moderate persistent asthma with (acute) exacerbation Plan: Refill provided for inhaled steroid for chronic management. Additionally refill of albuterol inhaler. Prednisone with taper sent for symptomatic management. Advised patient to follow up as needed or with worsening or failure to resolve. Plan See above for full details and plan. Medications: New prednisone 5 tablets daily for 2 days, then 4 tablets daily for 2 days, then 3 tablets daily for 2 days, then 2 tablets daily for 2 days, then 1 tablet daily for 2 days. 10 mg PO DIRECTED 30 tabs 0RF Refilled fluticasone propion-salmeterol 250-50 mcg/dose (Advair Diskus) 1 inh inhalation BID 60 ea 0RF albuterol sulfate 90 mcg/actuation (Ventolin HFA) 1 inh inhalation QID PRN 8.5 grams 1RF shortness of breath or wheezing Coding Level of Care Code Est Pt Level 3 (74088) Diagnoses Moderate persistent asthma with exacerbation J45.41 Asthma severity: moderate Asthma persistence: persistent
[2024-03-28 09:24] VITALS: BP 130/82; PULSE 59; TEMP 36.8; O2SAT 98
== END 2024-03-28 10:04 | disposition home or self-care (01) ==
PROVIDERS: PCP Internal Medicine; Visit Provider Registered Nurse
DX: J45.41 Moderate persistent asthma with (acute) exacerbation (principal)

== ENCOUNTER → 2024-03-28 08:18 | Outpatient (BNVA) | payer OTHER, SELFPAY | PROVIDERS: PCP Internal Medicine; Visit Provider Registered Nurse | DX: J45.41 Moderate persistent asthma with (acute) exacerbation (principal) | CPT/HCPCS: 99212 ==

== ENCOUNTER 2024-04-21 15:00 | Outpatient (AMB) | payer OTHER, SELFPAY ==
--- NOTE | 2024-04-21 15:31 | A.OFFPC_ITS ---
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: No Accompanied by: Son Allergies nut - unspecified [nut] Allergy (Mild, Verified 04/22/24 07:23) UNKNOWN Chocolate Allergy (Mild, Uncoded 04/22/24 07:23) UNKNOWN Medication List - Last Reconciled 04/22/24 by Abhishek Gaming MD albuterol sulfate 90 mcg/actuation (Ventolin HFA) 1 inh inhalation QID PRN azithromycin (Zithromax) take 500 mg today (day 1), then 250 mg for 4 days (days 2-5) PO citalopram 20 mg PO DAILY clonazepam (Klonopin) 0.5 mg PO BEDTIME PRN fluticasone propion-salmeterol 250-50 mcg/dose (Advair Diskus) 1 inh inhalation BID prednisone 10 mg PO DIRECTED Tobacco use date assessed: 04/21/24 Dental Screening Dental Screen Date: 04/21/24 Did you have a dental visit in the last 12 months?: No Did you have a dental problem in the last 6 months where you did not have access to dental care?: No Was dental information given to patient?: Patient has dentist HPI 6 month f/u HPI Details 43-year-old female presents to the offic e to discuss her chronic medical conditions. Recently she was diagnosed with an upper respiratory tract infection. She was given a tapering dose of prednisone and an inhaler. After the dose of prednisone was completed, patient continues to have wheezing symptoms. Patient reports and believes that due to her intake of prednisone she gained 10 lb in weight. Anxiety symptoms are well controlled on the current regimen. Able to function and do activities of daily living. [facility] Medical History (Updated 11/03/23 @ 08:23 by Abhishek Gaming MD) Allergies Generalized anxiety disorder Osteoarthritis of right knee History of History of gestational diabetes Stress incontinence GERD (gastroesophageal reflux disease) Migraine Obesity Obsessive compulsive disorder Hypercholesterolemia Asthma Anemia Surgical History History of left breast biopsy History of History of dilatation and curettage S/P arthroscopic surgery of right knee Family History Father Hyperlipidemia Mother History of hysterectomy Son Apraxia Other Mental health disorder Social History Housing: House Alcohol intake: current Alcohol type: beer Patient Tobacco Use Status: Former Tobacco user e-Cigarette/Vaping Use: Never Used Second Hand Smoke Exposure: No service: Yes Current occupational status: employed Current occupational exposures/hazards: No Cognitive needs: No Hearing needs: No Vision needs: No Questionnaire PHQ-9 Over the last 2 weeks, how often have you been bothered by any of the following problems? 1. Little interest or pleasure in doing things: not at all 2. Feeling down, depressed, or hopeless: not at all 3. Trouble falling or staying asleep, or sleeping too much: not at all 4. Feeling tired or having little energy: not at all 5. Poor appetite or overeating: not at all 6. Feeling bad about yourself - or that you are a failure or have let yourself or your family down: not at all 7. Trouble concentrating on things, such as reading the newspaper or watching television: not at all 8. Moving or speaking so slowly that other people could have noticed. Or the opposite - being so fidgety or restless that you have been moving around a lot more than usual: not at all 9. Thoughts that you would be better off or of hurting yourself in some way: not at all Total score: 0 Depression Screening Interpretation: Negative Depression Screening Done: Yes 05400 - PHQ-9 Billing: Yes Source: Developed by Drs. Dylon Walden, Deirdre Hendrix, Daron Lozada and colleagues, with an educational cookie from [employer]. Thrive Questionnaire Date Thrive assessed: 04/21/24 I am a: Patient What is your living situation today?: I have a steady place to live Within the past 12 months, did the food you bought not last and you didn't have the money to get more?: Never true Within the past 12 months, did you worry whether your food would run out before you got money to buy more?: Never true Do you have trouble paying for medicines?: No Do you have trouble getting transportation to medical appointments?: No Do you have trouble paying your heating and electricity bill?: No Do you have trouble taking care of your child, family member or friend?: No Do you have trouble with day-to-day activities such as bathing, preparing meals, shopping, managing finances, etc.?: No Are you currently unemployed and looking for a job?: No Are you interested in more education?: No Please select the resources that you would like help with: None Currently or been in a relationship where the following occur: No concerns reported THRIVE Score: 0 AUDIT C Alcohol Use Questionnaire (AUDIT-C) 1. How often do you have a drink containing alcohol?: Monthly or less 2. How many drinks containing alcohol do you have on a typical day when you are drinking?: 1 or 2 3. How often do you have six or more drinks on one occasion?: Never Total Score: 1 BUDDY-7 AMB Questionnaire BUDDY-7 Date BUDDY - 7 assessed: 11/03/23 Feeling nervous, anxious, or on edge: 2 = More than half the days Not being able to stop or control worryin = Not at all Worrying too much about different things: 3 = Nearly every day Trouble relaxin = More than half the days Being so restless that it is hard to sit still: 1 = Several days Becoming easily annoyed or irritable: 2 = More than half the days Feeling afraid as if something awful might happen: 1 = Several days Total BUDDY-7 score (0-4 normal; 5-9 mild; 10-14 moderate; 15-21 severe): 11 Source: Developed by Drs. Dylon Walden, Deirdre Hendrix, Daron Lozada and colleagues, with an educational cookie from [employer]. BUDDY-7 Assessment Billing BUDDY-7 Assessment Tool: BUDDY-7 Assessment 80903 Physical exam (Primary Care) Vital Signs: Last Vital Signs Temp 97.3 F 04/21/24 15:32 Pulse 76 04/21/24 15:32 BP 128/82 04/21/24 15:32 Pulse Ox 98 04/21/24 15:32 Oxygen Delivery Method Room Air 01/16/25 15:32 Care Plan Goal for BP management: Blood pressure is in range. BMI result Body Mass Index 41.4 Tobacco/Smoking Status: Tobacco use Status Tobacco use date assessed 04/21/24 04/21/24 15:39 Patient Tobacco Use Status Former Tobacco user 04/21/24 15:39 e-Cigarette/Vaping Use Never Used 04/21/24 15:39 PHQ-9: PHQ-9 Score PHQ-9: Total score 0 04/21/24 16:53 Depression Screening Interpretation: Negative Thrive Assessment: Date of Thrive Assessment Date Thrive assessed 04/21/24 04/21/24 15:39 Currently or been in a relationship where the following occur: No concerns reported Const General: cooperative and healthy appearing Nutritional Appearance: well nourished Orientation/consciousness: patient oriented x3 Limitations: no limitations HENMT Head: Yes normal to inspection Eyes General: appearance normal, both eyes and all related structures Neck Neck: Yes normal visual inspection Chest Chest palpation & inspection: normal palpation of entire chest wall Resp Effort & Inspection: normal respiratory effort Neuro General: patient oriented x3 Coding Level of Care Code Est Pt Level 4 (18802) Complex EM visit Add On G2211 Diagnoses Morbid obesity with BMI of 40.0-44.9, adult E66.01; Z68.41 Generalized anxiety disorder F41.1 Upper respiratory tract infection J06.9 Additional Codes BUDDY-7 Assessment Billing - BUDDY-7 Assessment Tool: BUDDY-7 Assessment 79297 ([id number]) PHQ-9 - 77430 - PHQ-9 Billing: Yes ([id number]) Assessment & Plan Assessment & Plan (1) Morbid obesity with BMI of 40.0-44.9, adult: Code(s): E66.01 - Morbid (severe) obesity due to excess calories; Z68.41 - Body mass index [BMI] 40.0-44.9, adult Category: Medical Plan: Counseling on the importance of diet and exercise suggested. (2) Generalized anxiety disorder: Code(s): F41.1 - Generalized anxiety disorder Category: Medical Plan: Condition is stable on SSRIs. (3) Upper respiratory tract infection: Code(s): J06.9 - Acute upper respiratory infection, unspecified Plan: Antibiotics added to the regimen. Orders: Orders MM screening mammo BI 04/21/24 Z12.31 - Encounter for screening mammogram for malignant neoplasm of breast Medications: New azithromycin (Zithromax) take 500 mg today (day 1), then 250 mg for 4 days (days 2-5) PO 6 tabs 0RF
[2024-04-21 15:32] VITALS: BP 128/82; PULSE 76; TEMP 36.3; O2SAT 98; BMI 41.4
== END 2024-04-21 15:52 | disposition home or self-care (01) ==
PROVIDERS: PCP Internal Medicine; Visit Provider Internal Medicine
DX: E66.01 Morbid (severe) obesity due to excess calories (principal); Z68.41 Body mass index [BMI] 40.0-44.9, adult; F41.1 Generalized anxiety disorder; J06.9 Acute upper respiratory infection, unspecified

== ENCOUNTER → 2024-04-21 15:00 | Outpatient (BNVA) | payer OTHER, SELFPAY | PROVIDERS: PCP Internal Medicine; Visit Provider Internal Medicine | DX: E66.01 Morbid (severe) obesity due to excess calories (principal); Z68.41 Body mass index [BMI] 40.0-44.9, adult; F41.1 Generalized anxiety disorder; J06.9 Acute upper respiratory infection, unspecified | CPT/HCPCS: 96127; 99212 ==